=== PATIENT | male | born 1940 | race Hispanic/Latino ===

== ENCOUNTER → 2019-01-23 | Day surgery (SDC) | payer MEDICARE ==
[~2019-01-23] MED LIST: ARICEPT5 MG PO; ATORVASTATIN CA20 MG PO; FENTANYL CITRATE/PF 100MCG/2 ML INJ ONE; FLOMAX0.4 MG PO; GLYCOPYRROLATE INJ 1MG/ 5 ML SYR ONE; METFORMIN HCL500 MG PO; MIDAZOLAM HCL 2 MG/2 ML VIAL ONE; MONTELUKAST SOD10 MG PO; OR PHACO EYE KIT ONE; PIOGLITAZONE HC45 MG PO; PLAVIX75 MG PO; PREDNISONE5 MG PO; PREOP PHACO EYE KIT ONE; SYMBICORT 80-10.2 GM INH; THEOPHYLLINE A200 MG PO; VIT B12 PO
--- OUTSIDE RECORDS SUMMARY | 2019-01-23 09:41 | XMS REPORT | Clinical Summary ---
Author Author [facility] Organization [facility] Address Unknown Phone Unavailable Care Team Providers Care Associate Director Financial Aid Name Role Phone Batsheva Ma MD PCP Allergies Comments Active Allergy Reactions Severity Noted Date Aspirin GI 02/10/2018 Intolerance Morphine Anxiety Low 02/10/2018 Medications End Date Status Medication Sig Dispensed Refills Start Date Active atorvastatin (LIPITOR) 40 daily. 0 MG tablet 8 Active lisinopril daily. 0 (PRINIVIL,ZESTRIL) 2.5 mg 8 tablet Active theophylline (THEODUR) 0 300 MG 12 hr tablet 8 Active predniSONE (DELTASONE) 5 0 mg tablet 8 Active pioglitazone (ACTOS) 30 0 12/17/201 MG tablet 8 Active tamsulosin (FLOMAX) 0.4 0 mg capsule,extended 8 release 24hr Active montelukast (SINGULAIR) Take 10 mg by 0 10 mg tablet mouth nightly. Active cyanocobalamin (VITAMIN Take 5,000 0 B-12) 1000 MCG tablet mcg by mouth daily. Active cholecalciferol, vitamin Take 1,000 0 D3, (VITAMIN D3) 1,000 Units by unit tablet mouth daily. 02/10/2019 Active clopidogrel (PLAVIX) 75 Take 1 tablet 30 tablet 11 mg tablet (75 mg total) 8 by mouth daily. Active SYMBICORT 80-4.5 0 mcg/actuation inhaler 8 07/23/2019 Active donepezil (ARICEPT) 10 MG Take 1 tablet 90 tablet 3 tablet (10 mg total) 8 by mouth nightly for 360 days. Active metFORMIN (GLUCOPHAGE) Take 500 mg 0 500 mg tablet by mouth. 11/03/2018 Discontinued JENTADUETO 2.5-1,000 mg 0 tablet 8 11/03/2018 Discontinued albuterol (ACCUNEB) 2.5 Take 2.5 mg 0 mg /3 mL (0.083 %) by nebulizer solution nebulization every 6 (six) hours as needed for wheezing. 07/28/2018 Discontinued beclomethasone (QVAR) 80 Inhale 1 puff 0 mcg/actuation inhaler 2 (two) times a day. 07/28/2018 Discontinued donepezil (ARICEPT) 5 MG Take 1 tablet 30 tablet 11 tablet (5 mg total) 8 by mouth daily. 07/28/2018 Discontinued donepezil (ARICEPT) 5 MG Take 1 tablet 30 tablet 11 tablet (5 mg total) 8 by mouth nightly. 11/03/2018 Discontinued sitaGLIPtin (JANUVIA) 50 Take 50 mg by 0 MG tablet mouth daily. Active Problems Problem Noted Date Early onset Alzheimer's dementia without behavioral disturbance 02/10/2018 Transient cerebral ischemia 02/10/2018 Encounters Care Team Description Date Type Specialty Clyde Stallworth MD Early onset Alzheimer's dementia without behavioral disturbance (Primary Dx); Transient cerebral ischemia, unspecified type 11/03/2018 Office Visit Neurology Clyde Stallworth MD Early onset Alzheimer's dementia without behavioral disturbance (Primary Dx); Transient cerebral ischemia, unspecified type 07/28/2018 Office Visit Neurology Ana Dickerson MA Early onset Alzheimer's dementia without behavioral disturbance; Transient cerebral ischemia, unspecified type 07/10/2018 Orders Only Neurology Clyde Stallworth MD Early onset Alzheimer's dementia without behavioral disturbance (Primary Dx); Transient cerebral ischemia, unspecified type 04/28/2018 Office Visit Neurology Clyde Stallworth MD Late 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; Transient cerebral ischemia, unspecified type 03/08/2018 Hospital Neurology Encounter Clyde Stallworth MD Late 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 03/08/2018 Hospital Radiology Encounter Clyde Stallworth MD Late 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; Transient cerebral ischemia, unspecified type 02/23/2018 Hospital Radiology Encounter Clyde Stallworth MD Late 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 (Primary Dx); Transient cerebral ischemia, unspecified type; Memory loss 02/10/2018 Office Visit Neurology after 01/22/2018 Family History Medical History Relation Name Comments Heart disease Brother Diabetes Mother Diabetes Sister Relation Name Status Comments Brother Mother Sister Social History Date Tobacco Use Types Packs/Day Years Used Never Smoker Smokeless Tobacco: Never Used Alcohol Use Drinks/Week oz/Week Comments Yes Occassionally Sex Assigned at Date Recorded Not on file Industry Job Start Date Occupation Not on file Not on file Not on file Travel End Travel History Travel Start No recent travel history available. Last Filed Vital Signs Time Taken Vital Sign Reading 11/03/2018 8:17 AM WIND OPERATIONS MANAGER Blood Pressure 114/62 11/03/2018 8:17 AM WIND OPERATIONS MANAGER Pulse 68 - Temperature - - Respiratory Rate - - Oxygen Saturation - - Inhaled Oxygen - Concentration 11/03/2018 8:17 AM WIND OPERATIONS MANAGER Weight 60.2 kg (132 lb 12.8 oz) 11/03/2018 8:17 AM WIND OPERATIONS MANAGER Height 165.1 cm (5' 5") 11/03/2018 8:17 AM WIND OPERATIONS MANAGER Body Mass Index 22.1 Plan of Treatment Care Team Description Date [place] [address] [facility] [address] [place] [address] [id number] 11/01/2019 Office Visit Neurology Health Maintenance Due Date Last Done Comments SHINGLES VACCINES (#1) 1991 65+ PNEUMOCOCCAL VACCINE 2006 (1 of 2 - PCV13) PNEUMOCOCCAL 2006 POLYSACCHARIDE VACCINE AGE 65 AND OVER INFLUENZA VACCINE 05/24/2018 Procedures Comments Procedure Name Priority Date/Time Associated Diagnosis EEG AWAKE/ASLEEP LESS Routine 03/08/2018 Late onset Alzheimer's THAN 41 MIN 3:04 PM CDT disease without behavioral disturbance Transient cerebral ischemia, unspecified type MRI BRAIN WO CONTRAST Routine 03/08/2018 Late onset Alzheimer's 2:20 PM CDT disease without behavioral disturbance US CAROTID DUPLEX Routine 02/23/2018 Late onset Alzheimer's BILATERAL 11:39 AM CDT disease without behavioral disturbance Transient cerebral ischemia, unspecified type after 01/22/2018 Results * Outpatient EEG (03/08/2018 3:04 PM CDT) Narrative Performed At [facility] DEPARTMENT OF OUTPATIENT ELECTROENCEPHALOGRAM REPORT PATHOLOGY AND Date of Service: 03/08/18 GENOMIC MEDICINE Ordering Physician: Dr. Clyde Stallworth History: 77-year-old man with memory loss, altered mental status and episodes of confusion Technical Description: The recording was a digitally recorded multi-montage EEG with 21 electrodes placed according to the International 10/20 system.An EKG strip was recorded continuously. EEG Description: When maximally aroused, the awake background was characterized by a well-developed 7 to 8 Hz, 10 to 30 microvolts symmetric posterior rhythm that attenuated appropriately to eye opening.The patient becomes drowsy over the course of the recording as evidenced by the dropout of the posterior rhythm and the emergence of a diffuse 2 to 7 Hz, 40 to 60 microvolts irregular slow activity. Intermittent generalized theta activity noted. No epileptiform activity or focal slowing observed. Activation Procedures: Hyperventilation was not performed.Photic stimulation utilizing flash frequencies ranging from 5 to 30 Hz produced a driving response best seen at 14-20 Hz. No paroxysmal changes were identified. Sleep Recording: The patient became drowsy and Stage II sleep was documented. No REM sleep observed. EEG Interpretation: This is an abnormal awake and asleep EEG consistent with a mild diffuse encephalopathy. No paroxysmal discharges were observed. Note, the absence of paroxysmal discharges does not rule out an underlying tendency for unprovoked seizures (epilepsy). Clyde Stallworth MD Board Certified in Neurology [facility] [id number] [facility], [address] [place], [place] [address] Performing Organization Address City/State/Zipcode Phone Number [place] [phone] [facility] [address] PATHOLOGY AND GENOMIC MEDICINE * MRI Brain Wo Contrast (03/08/2018 2:20 PM CDT) Narrative Performed At [facility] EXAMINATION: MRI BRAIN WO CONTRAST CLINICAL HISTORY: G30.1 Alzheimer's disease with late onset, F02.80 Dementia in other diseases classified elsewhere without behavioral disturbance, Dementia COMPARISON:CT brain from March 24, 2017. TECHNIQUE: Multiplanar and multisequence MRI imaging of the brain was obtained without contrast. FINDINGS: There is no evidence of acute infarct, intracranial hemorrhage or mass, hydrocephalus or midline shift. There is nonspecific enlargement of the ventricles and extra axial space greater in the frontal temporal region. There is a tiny old infarct in the left frontal anne radiata with a small amount of old hemorrhage signal. There are minimal white matter changes. The sella is partially empty with a small pituitary gland. The cerebellar tonsils extend down to the level of the foramen magnum. There is postoperative changes in the sinuses with mild mucosal thickening in the postoperative maxillary and ethmoid sinuses. There is partial opacification of the frontal and sphenoid sinuses with mucosal thickening and possibly polyp or retention cysts. IMPRESSION: No acute findings in the brain. Chronic changes in the brain. Nonspecific enlargement of the ventricles and extra-axial space greater in the frontal and temporal regions. If indicated PET scan can be performed for further evaluation of dementia. Postoperative changes in the sinuses with partial opacification of some of the sinuses. [id number] Procedure Note Hm Interface, Radiology Results Incoming - 03/08/2018 2:57 PM CDT EXAMINATION: MRI BRAIN WO CONTRAST CLINICAL HISTORY: G30.1 Alzheimer's disease with late onset, F02.80 Dementia in other diseases classified elsewhere without behavioral disturbance, Dementia COMPARISON: CT brain from March 24, 2017. TECHNIQUE: Multiplanar and multisequence MRI imaging of the brain was obtained without contrast. FINDINGS: There is no evidence of acute infarct, intracranial hemorrhage or mass, hydrocephalus or midline shift. There is nonspecific enlargement of the ventricles and extra axial space greater in the frontal temporal region. There is a tiny old infarct in the left frontal anne radiata with a small amount of old hemorrhage signal. There are minimal white matter changes. The sella is partially empty with a small pituitary gland. The cerebellar tonsils extend down to the level of the foramen magnum. There is postoperative changes in the sinuses with mild mucosal thickening in the postoperative maxillary and ethmoid sinuses. There is partial opacification of the frontal and sphenoid sinuses with mucosal thickening and possibly polyp or retention cysts. IMPRESSION: No acute findings in the brain. Chronic changes in the brain. Nonspecific enlargement of the ventricles and extra-axial space greater in the frontal and temporal regions. If indicated PET scan can be performed for further evaluation of dementia. Postoperative changes in the sinuses with partial opacification of some of the sinuses. [facility]-[id number] Performing Organization Address City/State/Zipcode Phone Number [facility] [address] [place] [address] * Us carotid duplex (02/23/2018 11:39 AM CDT) Narrative Performed At Examination: US CAROTID DUPLEX BILATERAL [facility] CLINICAL HISTORY: G30.1 Alzheimer's disease with late onset, F02.80 Dementia in other diseases classified elsewhere without behavioral disturbance, TIA CVA TECHNIQUE: Examination includes full duplex Doppler scan (real-time B mode grayscale, Doppler spectral analysis, Doppler color flow imaging) of the common carotid, internal carotid, external carotid, and vertebral arteries. Velocity parameters are based upon studies using distal internal carotid artery diameter as a denominator for stenosis calculation. COMPARISON:None. FINDINGS: Right Carotid:There are no significant atherosclerotic changes involving the right common carotid artery, carotid bulb, or visualized aspects of the right internal and external carotid arteries. There are no flow-limiting stenoses.The peak systolic velocities in the right internal carotid artery are: 42.64 cm/s, -73.64 cm/s, and -64.32 cm/s. There is antegrade flow in the right vertebral artery. Left Carotid:There are no significant atherosclerotic changes involving the left common carotid artery, carotid bulb, and visualized aspects of the left internal and external carotid arteries. There are no flow-limiting stenoses.The peak systolic velocities in the left internal carotid artery are: -60.34 cm/s, -93.52 cm/s, and 72.43 cm/s. There is antegrade flow in the left vertebral artery. IMPRESSION: Negative bilateral carotid Doppler examination. No hemodynamically significant stenosis in either carotid artery (less than 50%). Bilateral antegrade vertebral flow. [facility]-[id number] Procedure Note Interface, Radiology Results Incoming - 02/23/2018 11:44 AM CDT Examination: US CAROTID DUPLEX BILATERAL CLINICAL HISTORY: G30.1 Alzheimer's disease with late onset, F02.80 Dementia in other diseases classified elsewhere without behavioral disturbance, TIA CVA TECHNIQUE: Examination includes full duplex Doppler scan (real-time B mode grayscale, Doppler spectral analysis, Doppler color flow imaging) of the common carotid, internal carotid, external carotid, and vertebral arteries. Velocity parameters are based upon studies using distal internal carotid artery diameter as a denominator for stenosis calculation. COMPARISON:None. FINDINGS: Right Carotid: There are no significant atherosclerotic changes involving the right common carotid artery, carotid bulb, or visualized aspects of the right internal and external carotid arteries. There are no flow-limiting stenoses. The peak systolic velocities in the right internal carotid artery are: 42.64 cm/s, -73.64 cm/s, and -64.32 cm/s. There is antegrade flow in the right vertebral artery. Left Carotid: There are no significant atherosclerotic changes involving the left common carotid artery, carotid bulb, and visualized aspects of the left internal and external carotid arteries. There are no flow-limiting stenoses. The peak systolic velocities in the left internal carotid artery are: -60.34 cm/s, -93.52 cm/s, and 72.43 cm/s. There is antegrade flow in the left vertebral artery. IMPRESSION: Negative bilateral carotid Doppler examination. No hemodynamically significant stenosis in either carotid artery (less than 50%). Bilateral antegrade vertebral flow. [id number] Performing Organization Address City/State/Zipcode Phone Number [facility] [address] [place] [address] after 01/22/2018 Insurance Payer Benefit Subscriber ID Type Phone Address Plan / Group AETNA MEDICARE AETNA xxxxxxxx HMO MEDICARE HMO/PPO [facility] Advance Directives Patient has advance care planning documents on file. For more information, moraima garcia contact: Giacomo Bauman [address] [place] [address]
--- OUTSIDE RECORDS SUMMARY | 2019-01-23 09:41 | XMS REPORT | Clinical Summary ---
Author Author MELVA [facility] Address Unknown Phone Unavailable Care Team Providers Care Clothes Presser Name Role Phone PCP Unavailable Allergies Comments Active Allergy Reactions Severity Noted Date Aspirin Hives, High 09/28/2018 Shortness Of Breath Medications End Date Status Medication Sig Dispensed Refills Start Date Active albuterol HFA (VENTOLIN Inhale 1 puff 0 HFA) 90 mcg/actuation by mouth via inhaler inhaler every 6 (six) hours as needed for Wheezing. Active metFORMIN (GLUCOPHAGE) Take 500 mg 0 500 MG tablet by mouth 2 (two) times daily with breakfast and dinner. Active pioglitazone (ACTOS) 15 Take 15 mg by 0 MG tablet mouth daily. Active atorvastatin (LIPITOR) 40 Take 40 mg by 0 MG tablet mouth daily. Active montelukast (SINGULAIR) Take 10 mg by 0 10 mg tablet mouth nightly. Active predniSONE (DELTASONE) 5 Take 5 mg by 0 MG tablet mouth daily. Active theophylline (THEODUR) Take 300 mg 0 300 MG 12 hr tablet by mouth 2 (two) times daily. Active lisinopril Take 2.5 mg 0 (PRINIVIL,ZESTRIL) 2.5 MG by mouth tablet daily. Active tamsulosin (FLOMAX) 0.4 Take 0.4 mg 0 mg Cap 24 hr capsule by mouth daily. Active donepezil (ARICEPT) 5 MG Take 5 mg by 0 tablet mouth nightly. Active clopidogrel (PLAVIX) 75 Take 75 mg by 0 mg tablet mouth daily. Active cyanocobalamin (VITAMIN Take 100 mcg 0 B-12) 100 MCG tablet by mouth daily. Active cholecalciferol, vitamin Take 1,000 0 D3, (VITAMIN D3) 1,000 Units by unit capsule mouth daily. Active budesonide-formoterol Inhale 2 0 (SYMBICORT) 80-4.5 puffs by mcg/actuation inhaler mouth via inhaler 2 (two) times daily. Active Problems Not on file Encounters Care Team Description Date Type Specialty Kishore Macedo MD 09/28/2018 Hospital Pre-Admission Testing Encounter after 01/22/2018 Social History Date Tobacco Use Types Packs/Day Years Used Never Smoker Smokeless Tobacco: Never Used Alcohol Use Drinks/Week oz/Week Comments Yes ocassional Alcohol Habits Answer Date Recorded How often do you have a drink containing alcohol? Never 09/28/2018 How many drinks containing alcohol do you have on Not asked a typical day when you are drinking? How often do you have six or more drinks on one Not asked occasion? Sex Assigned at Date Recorded Not on file Industry Job Start Date Occupation Not on file Not on file Not on file Travel End Travel History Travel Start No recent travel history available. Last Filed Vital Signs Time Taken Vital Sign Reading 09/28/2018 12:39 PM JAMMER OPERATOR Blood Pressure 107/50 09/28/2018 12:39 PM JAMMER OPERATOR Pulse 66 09/28/2018 12:39 PM JAMMER OPERATOR Temperature 36.7 C (98 F) 09/28/2018 12:39 PM JAMMER OPERATOR Respiratory Rate 16 09/28/2018 12:39 PM JAMMER OPERATOR Oxygen Saturation 99% - Inhaled Oxygen - Concentration 09/28/2018 12:39 PM JAMMER OPERATOR Weight 59 kg (130 lb) 09/28/2018 12:39 PM JAMMER OPERATOR Height 165.1 cm (5' 5") 09/28/2018 12:39 PM JAMMER OPERATOR Body Mass Index 21.63 Plan of Treatment Not on file Procedures Comments Procedure Name Priority Date/Time Associated Diagnosis CBC W/PLT COUNT & AUTO Routine 09/28/2018 DIFFERENTIAL 12:17 PM JAMMER OPERATOR CBC W/PLT COUNT & AUTO Routine 09/28/2018 DIFFERENTIAL 12:17 PM JAMMER OPERATOR BASIC METABOLIC PANEL (7) Routine 09/28/2018 12:17 PM JAMMER OPERATOR after 01/22/2018 Results * CBC with platelet count + automated diff (09/28/2018 12:17 PM JAMMER OPERATOR) WBC 6.6 4.0 - 10.0 K/L [facility] RBC 4.32 4.20 - 5.80 M/L [facility] Hemoglobin 13.2 13.0 - 16.8 GM/DL [facility] Hematocrit 40.8 36.0 - 50.0 % [facility] MCV 94.4 82.0 - 99.0 fL [facility] MCH 30.6 27.0 - 33.0 pg [facility] MCHC 32.4 32.0 - 36.0 GM/DL [facility] RDW 13.5 12.0 - 15.0 % [facility] Platelets 200 150 - 430 K/CU MM [facility] MPV 11.0 6.0 - 11.5 fL [facility] nRBC 0 0 - 0 /100 WBC [facility] % Neutros 64 % [facility] % Lymphs 22 % [facility] % Monos 9 % [facility] % Eos 4 % [facility] % Baso 1 % [facility] # Neutros 4.25 1.80 - 8.00 K/L [facility] # Lymphs 1.44 (L) 1.48 - 4.50 K/L [facility] # Monos 0.58 0.00 - 1.30 K/L [facility] # Eos 0.27 0.00 - 0.50 K/L [facility] # Baso 0.04 0.00 - 0.20 K/L [facility] Immature 1 (H) 0 - 0 % [facility] Granulocytes-Relative [facility] Specimen Blood Performing Organization Address City/[facility]/Zipcode Phone Number [facility] [address] [place] [address] * Basic Metabolic Panel (09/28/2018 12:17 PM JAMMER OPERATOR) Sodium 142 135 - 148 meq/L [facility] Potassium 3.7 3.6 - 5.5 meq/L [facility] Chloride 104 98 - 106 meq/L [facility] CO2 29 20 - 29 meq/L [facility] BUN 14 10 - 26 mg/dL [facility] Creatinine 0.85 0.50 - 1.20 mg/dL [facility] Glucose 97 70 - 110 mg/dL [facility] Calcium 9.4 8.5 - 10.5 mg/dL [facility] EGFR Comment: INSUFFICIENT CLINICAL mL/min/1.73 sq m [facility] DATA TO CALCULATE ESTIMATED LABORATORY GFR. Specimen Blood Performing Organization Address City/State/Zipcode Phone Number [facility] [address] [place] [address] after 01/22/2018 Insurance Payer Benefit Subscriber ID Type Phone Address Plan / Group AETNA - MEDICARE MGD CARE AETNA xxxxxxxx [phone] [address] [place] [address] HMO POS PPO
--- OUTSIDE RECORDS SUMMARY | 2019-01-23 09:41 | XMS REPORT ---
Author Author [facility] Address Unknown Phone Unavailable Care Team Providers Care Liner Checker Name Role Phone SAM WESTFALL Unavailable Unavailable Payers Payer Name Policy Type Policy Number Effective Date Expiration Date Problems This patient has no known problems. Allergies, Adverse Reactions, Alerts Allergy Name Allergy Type Status Severity Reaction(s) Onset Date Inactive Date Treating Clinician Comments aspirin DA Active SV 2016-04-20 00:00:00 Medications This patient has no known medications. Results Test Description Test Time Test Comments Text Results Atomic Results Result Comments BASIC METABOLIC PANEL 2018-09-28 13:50:00 SODIUM (BEAKER) (test lsei=146) 142 meq/L 135-148 POTASSIUM (BEAKER) (test mfqt=585) 3.7 meq/L 3.6-5.5 CHLORIDE (BEAKER) (test sdzb=820) 104 meq/L 98-106 CO2 (BEAKER) (test vwvx=017) 29 meq/L 20-29 BLOOD UREA NITROGEN (BEAKER) (test eqot=235) 14 mg/dL 10-26 CREATININE (BEAKER) (test unmb=471) 0.85 mg/dL 0.50-1.20 GLUCOSE RANDOM (BEAKER) (test sogv=273) 97 mg/dL 70-110 CALCIUM (BEAKER) (test ppzk=493) 9.4 mg/dL 8.5-10.5 EGFR (BEAKER) (test gnfe=0190) mL/min/1.73 sq m INSUFFICIENT CLINICAL DATA TO CALCULATE ESTIMATED GFR. CBC W/PLT COUNT & AUTO [id number] 13:18:00* Test Item Value Reference Range Comments WHITE BLOOD CELL COUNT (BEAKER) (test aatq=075) 6.6 K/ L 4.0-10.0 RED BLOOD CELL COUNT (BEAKER) (test mihh=987) 4.32 M/ L 4.20-5.80 HEMOGLOBIN (BEAKER) (test mugu=645) 13.2 GM/DL 13.0-16.8 HEMATOCRIT (BEAKER) (test rxdx=604) 40.8 % 36.0-50.0 MEAN CORPUSCULAR VOLUME (BEAKER) (test ncmp=260) 94.4 fL 82.0-99.0 MEAN CORPUSCULAR HEMOGLOBIN (BEAKER) (test amrn=458) 30.6 pg 27.0-33.0 MEAN CORPUSCULAR HEMOGLOBIN CONC (BEAKER) (test wjur=583) 32.4 GM/DL 32.0-36.0 RED CELL DISTRIBUTION WIDTH (BEAKER) (test bokc=352) 13.5 % 12.0-15.0 PLATELET COUNT (BEAKER) (test tyvg=209) 200 K/CU MM 150-430 MEAN PLATELET VOLUME (BEAKER) (test yrqa=058) 11.0 fL 6.0-11.5 NUCLEATED RED BLOOD CELLS (BEAKER) (test qfwo=043) 0 /100 WBC 0-0 NEUTROPHILS RELATIVE PERCENT (BEAKER) (test vbes=394) 64 % LYMPHOCYTES RELATIVE PERCENT (BEAKER) (test zusx=781) 22 % MONOCYTES RELATIVE PERCENT (BEAKER) (test mbqs=996) 9 % EOSINOPHILS RELATIVE PERCENT (BEAKER) (test huyw=338) 4 % BASOPHILS RELATIVE PERCENT (BEAKER) (test mtuz=763) 1 % NEUTROPHILS ABSOLUTE COUNT (BEAKER) (test bygt=600) 4.25 K/ L 1.80-8.00 LYMPHOCYTES ABSOLUTE COUNT (BEAKER) (test vttk=027) 1.44 K/ L 1.48-4.50 MONOCYTES ABSOLUTE COUNT (BEAKER) (test sknh=031) 0.58 K/ L 0.00-1.30 EOSINOPHILS ABSOLUTE COUNT (BEAKER) (test pacs=361) 0.27 K/ L 0.00-0.50 BASOPHILS ABSOLUTE COUNT (BEAKER) (test xmnl=547) 0.04 K/ L 0.00-0.20 IMMATURE GRANULOCYTES-RELATIVE PERCENT (BEAKER) (test tczf=7402) 1 % 0-0
[2019-01-23 12:05] VITALS: BP 116/60
== END | disposition home or self-care (01) ==
LOC: OR 09:38
PROVIDERS: ATTEND Ophthalmology
DX: H25.12 Age-related nuclear cataract, left eye (principal); E78.2 Mixed hyperlipidemia; E11.9 Type 2 diabetes mellitus without complications; J45.909 Unspecified asthma, uncomplicated; R09.89 Other specified symptoms and signs involving the circulatory and respiratory systems; F02.80 Dementia in other diseases classified elsewhere, unspecified severity, without behavioral disturbance, psychotic disturbance, mood disturbance, and anxiety; G30.9 Alzheimer's disease, unspecified; K44.9 Diaphragmatic hernia without obstruction or gangrene; N20.0 Calculus of kidney; Z88.6 Allergy status to analgesic agent; Z79.84 Long term (current) use of oral hypoglycemic drugs; Z79.02 Long term (current) use of antithrombotics/antiplatelets
CPT/HCPCS: 36415; 66984; 82948; J2250; J3490; V2632

== ENCOUNTER → 2019-02-06 | Day surgery (SDC) | payer MEDICARE ==
[~2019-02-06] MED LIST changes: -FENTANYL CITRATE/PF 100MCG/2 ML INJ ONE; -GLYCOPYRROLATE INJ 1MG/ 5 ML SYR ONE; +VITAMIN D31000 UNI1
--- OUTSIDE RECORDS SUMMARY | 2019-02-06 10:30 | XMS REPORT | Clinical Summary ---
Author Author MELVA [facility] Address Unknown Phone Unavailable Care Team Providers Care Feller Operator Name Role Phone PCP Unavailable Allergies Comments [...] MD 09/28/2018 Hospital Pre-Admission Testing Encounter after 02/05/2018 Social History Date Tobacco Use Types Packs/Day [...] Taken Vital Sign Reading 09/28/2018 12:39 PM BRAKE SPECIALIST Blood Pressure 107/50 09/28/2018 12:39 PM BRAKE SPECIALIST Pulse 66 09/28/2018 12:39 PM BRAKE SPECIALIST Temperature 36.7 C (98 F) 09/28/2018 12:39 PM BRAKE SPECIALIST Respiratory Rate 16 09/28/2018 12:39 PM BRAKE SPECIALIST Oxygen Saturation 99% - Inhaled Oxygen - Concentration 09/28/2018 12:39 PM BRAKE SPECIALIST Weight 59 kg (130 lb) 09/28/2018 12:39 PM BRAKE SPECIALIST Height 165.1 cm (5' 5") 09/28/2018 12:39 PM BRAKE SPECIALIST Body Mass Index 21.63 Plan of Treatment Not on file Procedures Comments Procedure Name Priority Date/Time Associated Diagnosis CBC W/PLT COUNT & AUTO Routine 09/28/2018 DIFFERENTIAL 12:17 PM BRAKE SPECIALIST CBC W/PLT COUNT & AUTO Routine 09/28/2018 DIFFERENTIAL 12:17 PM BRAKE SPECIALIST BASIC METABOLIC PANEL (7) Routine 09/28/2018 12:17 PM BRAKE SPECIALIST after 02/05/2018 Results * CBC with platelet count + automated diff (09/28/2018 12:17 PM BRAKE SPECIALIST) WBC 6.6 4.0 - 10.0 K/L [place] [...] Granulocytes-Relative LABORATORY Specimen Blood Performing Organization Address City/[facility]/Zipcode Phone Number [facility] [address] [place] [address] * Basic Metabolic Panel (09/28/2018 12:17 PM BRAKE SPECIALIST) Sodium 142 135 - 148 meq/L [facility] Potassium 3.7 3.6 - 5.5 meq/L [facility] Chloride 104 98 - 106 meq/L [facility] CO2 29 20 - 29 meq/L [facility] BUN 14 10 - 26 mg/dL [facility] Creatinine 0.85 0.50 - 1.20 mg/dL [facility] Glucose 97 70 - 110 mg/dL [place] Calcium 9.4 8.5 - 10.5 mg/dL [place] EGFR Comment: INSUFFICIENT CLINICAL mL/min/1.73 sq m [place] DATA TO CALCULATE ESTIMATED LABORATORY GFR. Specimen Blood Performing Organization Address City/State/Zipcode Phone Number [facility] [address] [place] [address] after 02/05/2018 Insurance Payer Benefit Subscriber ID Type Phone Address Plan / Group AET[employer] - MEDICARE [employer] CARE AET[employer] xxxxxxxx [phone] [address] [place] [address] HMO POS PPO
--- OUTSIDE RECORDS SUMMARY | 2019-02-06 10:30 | XMS REPORT | Clinical Summary ---
Author Author [facility] Address Unknown Phone Unavailable Care Team Providers Care Lap Checker Name Role Phone Batsheva Ma MD PCP [...] Memory loss 02/10/2018 Office Visit Neurology after 02/05/2018 Family History Medical History Relation Name Comments [...] Taken Vital Sign Reading 11/03/2018 8:17 AM COUNSELOR MANAGER Blood Pressure 114/62 11/03/2018 8:17 AM COUNSELOR MANAGER Pulse 68 - Temperature - - Respiratory Rate - - Oxygen Saturation - - Inhaled Oxygen - Concentration 11/03/2018 8:17 AM COUNSELOR MANAGER Weight 60.2 kg (132 lb 12.8 oz) 11/03/2018 8:17 AM COUNSELOR MANAGER Height 165.1 cm (5' 5") 11/03/2018 8:17 AM COUNSELOR MANAGER Body Mass Index 22.1 Plan of Treatment Care Team Description Date [place] [address] [facility] [address] [place] [address] [id number] 11/01/2019 Office Visit Neurology Health Maintenance Due Date Last Done Comments SHINGLES VACCINES (#1) 1991 65+ PNEUMOCOCCAL VACCINE 2006 (1 of 2 - PCV13) PNEUMOCOCCAL 2006 POLYSACCHARIDE VACCINE AGE 65 AND OVER INFLUENZA VACCINE 05/24/2019 Procedures Comments Procedure Name Priority Date/Time Associated [...] disturbance Transient cerebral ischemia, unspecified type after 02/05/2018 Results * Outpatient EEG (03/08/2018 3:04 PM CDT) Narrative Performed At [facility] DEPARTMENT OF OUTPATIENT ELECTROENCEPHALOGRAM REPORT PATHOLOGY AND [...] Clyde Stallworth MD Board Certified in Neurology [facility] [address] [facility], [address] [place], [place] [address] Performing Organization Address City/State/Zipcode Phone Number [place] [phone] [place] [place] [address] PATHOLOGY AND GENOMIC MEDICINE * MRI Brain [...] partial opacification of some of the sinuses. [id number] Procedure Note Hm Interface, Radiology Results Incoming [...] partial opacification of some of the sinuses. [id number] Performing Organization Address City/State/Zipcode Phone Number [facility] [address] [place] [address] * Us carotid duplex (02/23/2018 11:39 AM [...] (less than 50%). Bilateral antegrade vertebral flow. [id number] Procedure Note Interface, Radiology Results Incoming - [...] (less than 50%). Bilateral antegrade vertebral flow. [id number] Performing Organization Address City/State/Zipcode Phone Number [facility] [address] [place] [address] after 02/05/2018 Insurance Payer Benefit Subscriber ID Type Phone Address Plan / Group AETNA MEDICARE AETNA xxxxxxxx HMO MEDICARE HMO/PPO [facility] Advance Directives Patient has advance care planning documents on file. For more information, moraima garcia contact: Giacomo Bauman [address] [place] [address]
[2019-02-06 12:55] VITALS: BP 129/68
== END | disposition home or self-care (01) ==
LOC: OR 10:28
PROVIDERS: ATTEND Ophthalmology
DX: H25.11 Age-related nuclear cataract, right eye (principal); J45.909 Unspecified asthma, uncomplicated; G47.33 Obstructive sleep apnea (adult) (pediatric); F03.90 Unspecified dementia, unspecified severity, without behavioral disturbance, psychotic disturbance, mood disturbance, and anxiety; Z88.6 Allergy status to analgesic agent; Z79.02 Long term (current) use of antithrombotics/antiplatelets; Z79.84 Long term (current) use of oral hypoglycemic drugs
CPT/HCPCS: 36415; 66984; 82948; J2250; V2632